=== PATIENT | female | born 2000 | race Caucasian/White ===

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

== ENCOUNTER 2021-06-04 06:52 | Emergency (ER) | payer BC, MEDICAID, OTHER, SELFPAY ==
[~2021-06-04] VITALS: Ht 167.6 cm; Wt 61.9 kg
[2021-06-04] MEDS ORDERED: VIEN1TAB (07:04)
[2021-06-04] MEDS ORDERED: NS 1,000 ML IV ONE ×2 (08:25→11:05)
[2021-06-04] MEDS ORDERED: ONDANSETRON 4MG/2ML VIAL IV ONE (08:25)
[2021-06-04 10:52] LABS: ALT/SGPT 33 U/L (12-78); BLOOD UREA NITROGEN 9 MG/DL (7-18); CALCIUM LEVEL 9.2 MG/DL (8.5-10.1); CARBON DIOXIDE LEVEL 21 MEQ/L (21-32); CHLORIDE LEVEL 108 MEQ/L (98-107); CREATININE FOR GFR 1.09 MG/DL (0.55-1.30); GLUCOSE, FASTING 159 MG/DL (70-100); SODIUM LEVEL 140 MEQ/L (136-145)
[2021-06-04 10:53] LABS: BILIRUBIN,DIRECT 0.2 MG/DL (0.0-0.2); BILIRUBIN,TOTAL 0.5 MG/DL (0.2-1.0); LIPASE 42 U/L (73-393); TOTAL PROTEIN 7.4 GM/DL (6.4-8.2)
[2021-06-04 10:54] LABS: BASO % 0.3 % (0.0-1.0); HEMATOCRIT 38.7 % (36.0-47.0); HEMOGLOBIN 13.1 g/dl (12.0-15.5); LYMPH # 0.3 10^3/uL (1.5-5.0); LYMPH % 2.6 % (24.0-44.0); MEAN CORPUSCULAR HEMOGLOBIN 30.2 pg (27.0-33.0); MEAN CORPUSCULAR HGB CONC 33.9 g/dl (32.0-36.5); MEAN CORPUSCULAR VOLUME 89.2 fl (80.0-96.0); MONO # 0.6 10^3/uL (0.0-0.8); MONO % 5.1 % (2.0-8.0); NEUTROPHILS % 91.5 % (36.0-66.0); PLATELET COUNT, AUTOMATED 228 10^3/uL (150-450); RED BLOOD COUNT 4.34 10^6/uL (4.00-5.40); WHITE BLOOD COUNT 10.9 10^3/uL (4.0-10.0)
[2021-06-04] MEDS ORDERED: METOCLOPRAMIDE INJ 10MG/2ML VIAL (J2765 PER 1) IV ONE (11:00)
[2021-06-04] MEDS ORDERED: PROMETHAZINE INJ 25 MG/ML VIAL (J2550) IV ONE (11:05)
[2021-06-04 12:16] LABS: RSV AMPLIFICATION NEGATIVE (NEGATIVE)
[2021-06-04] MEDS ORDERED: ZOFR4TAB16 PO (13:03)
[2021-06-04 13:30] VITALS: BP 143/73
== END 2021-06-04 13:32 | disposition home or self-care (01) ==
LOC: M ED 06:52
DX: E86.0 Dehydration (principal); J10.89 Influenza due to other identified influenza virus with other manifestations; R73.9 Hyperglycemia, unspecified; Z79.3 Long term (current) use of hormonal contraceptives; F17.210 Nicotine dependence, cigarettes, uncomplicated; F12.20 Cannabis dependence, uncomplicated
CPT/HCPCS: 80048; 80076; 81001; 83036; 83690; 84702; 85025; 87631; 96361; 96374; 96375; 99284; J2405